=== PATIENT | female | born 1995 | race Caucasian/White ===

== ENCOUNTER 2023-09-24 11:24 | Emergency (ER) | payer OTHER ==
[~2023-09-24] VITALS: Ht 152.4 cm; Wt 81.8 kg
[~2023-09-24 11:24] MED LIST: ESCI20TA87 PO
[2023-09-24 11:37] VITALS: TEMP 99
[2023-09-24 12:00] LABS: COVID AG,FIA SOURCE NASAL SWAB
[2023-09-24 12:21] LABS: SARS-COV2 (COVID) ANTIGEN,FIA Negative (Negative)
[2023-09-24] MEDS: SODIUM CHLORIDE 0.9% 1,000 ML IV ONE (12:22)
[2023-09-24] MEDS: DEXAMETHASONE SOD PHOS 4 MG/ML VIAL IVP ONE (12:22)
[2023-09-24 12:26] LABS: INFLUENZA TYPE A NEGATIVE FOR TYPE A (NEGATIVE); INFLUENZA TYPE B NEGATIVE FOR TYPE B (NEGATIVE)
[2023-09-24] MEDS ORDERED: AMOX250C4 PO (14:13)
[2023-09-24 14:15] VITALS: BP 120/71; PULSE 90; RESP 16
[2023-09-24] MEDS: AMOXICILLIN TRIHYDRATE 250 MG CAPSULE PO ONE (14:25)
== END 2023-09-24 15:04 | disposition home or self-care (01) ==
LOC: EMS 11:24
DX: J02.0 Streptococcal pharyngitis (principal); F41.9 Anxiety disorder, unspecified; F32.A Depression, unspecified; Z90.49 Acquired absence of other specified parts of digestive tract; Z20.822 Contact with and (suspected) exposure to COVID-19
CPT/HCPCS: 99283; 96374; 96361; 87426; 87430; 87804; J1100; J7030